=== PATIENT | female | born 1990 | race Caucasian/White ===

== ENCOUNTER → 2019-07-28 | Outpatient (CLI) | payer MEDICAID ==
--- NOTE | 2019-07-28 15:23 | Diagnostic Imaging Report ---
INDICATION: survey. TECHNIQUE: Multiple real-time grayscale images were obtained over the gravid uterus. COMPARISON: None. FINDINGS: Transverse positioning of the ross viable intrauterine gestation has the head to the maternal left. Owing to positioning, there is suboptimal visualization of the four-chambered heart, the cord, and the facial structures. No visualized anatomic abnormality. The placenta is posterior with no abruption or previa. The amniotic fluid index of 9.4 is normal. heart rate 158 bpm. Biometrical measurements are as follows: Biparietal 4.39 cm, age 19 weeks 2 days. Head circumference 17.45 cm, age 20 weeks 0 days. Abdominal circumference 15.01 cm, age 20 weeks 2 days. Femur length 3.37 cm, age 20 weeks 4 days. Sonographic estimate age: 20 weeks 1 days. Sonographic estimated date of delivery: 12/14/2019. Estimated Weight: 346 gm (+/- 51 gm). LMP percentile: 72%. heart rate: 158 beats per minute. number: 1 of 1. IMPRESSION: Ross viable IUP in transverse position measures 20 week 1 day. No pathological finding at the anatomical survey, however portions of the survey are limited on a positional basis as discussed. Dictated by: Dictated on workstation # [id number]
== END ==
LOC: RAD 13:49
PROVIDERS: ATTEND Obstetrics & Gynecology
DX: Z36.89 Encounter for other specified antenatal screening (principal); Z3A.20 20 weeks gestation of pregnancy
CPT/HCPCS: 76805

== ENCOUNTER → 2019-09-21 | Outpatient (CLI) | payer MEDICAID ==
--- NOTE | 2019-09-21 15:53 | Diagnostic Imaging Report ---
INDICATION: Followup anatomy. TECHNIQUE: Multiple Real-time grayscale images were obtained over the gravid uterus. COMPARISON: 07/28/2019. FINDINGS: There is a single live fetus in transverse presentation with the head to the maternal left. The heart rate was recorded at 147 BPM. The placenta is posterior. The amniotic fluid volume is normal. The cervical length is approximately 4.4 cm. A three-vessel cord is visualized today. A four-chamber heart view as well as a profile with nose and lips are again poorly visualized due to patient body habitus and position. IMPRESSION: Single live intrauterine . A three-vessel cord is noted on today's study. The profile with nose and lips as well as a four chamber heart view continue to be poorly visualized due to patient body habitus and position. Dictated by: Dictated on workstation # [id number]
== END ==
LOC: RAD 13:21
PROVIDERS: ATTEND Obstetrics & Gynecology
DX: Z36.2 Encounter for other antenatal screening follow-up (principal)
CPT/HCPCS: 76816

== ENCOUNTER 2019-11-02 10:11 | Outpatient (CLI) | payer MEDICAID ==
[~2019-11-02] VITALS: Ht 162.6 cm; Wt 157.2 kg
[2019-11-02 10:15] VITALS: BP 154/92
[2019-11-02] MEDS ORDERED: NS IV 500 ML 500 ML IV SCH (10:37)
[2019-11-02] MEDS ORDERED: EPINEPHrine INJECTION 1 MG/ML AMP IM PRN (10:45)
[2019-11-02] MEDS ORDERED: RT-ALBUTEROL SULF 2.5 MG/3 ML PRE-MIX VIAL IH PRN (10:45)
[2019-11-02] MEDS ORDERED: diphenhydrAMINE 50 MG/ML INJ (BENADRYL) IV PRN (10:45)
[2019-11-02] MEDS ORDERED: HYDROCORTISONE 100 MG/2 ML (Solu-CORTEF) VIAL IV PRN (10:45)
[2019-11-02] MEDS ORDERED: IRON DEXTRAN INJECTION 1,000 MG in NS (IVPB) 250 ML IV ONE (10:45)
[2019-11-02] MEDS ORDERED: IRON DEXTRAN INJECTION 25 MG in NS (IVPB) 5.75 ML IV ONE (10:45)
== END 2019-11-02 13:05 | disposition home or self-care (01) ==
LOC: SDC 10:11
PROVIDERS: ATTEND Obstetrics & Gynecology
DX: D64.9 Anemia, unspecified (principal)
CPT/HCPCS: 96365; 96366

== ENCOUNTER → 2019-11-23 | Outpatient (CLI) | payer MEDICAID ==
[~2019-11-23] MED LIST: GLYB5TAB6 PO
--- NOTE | 2019-11-23 14:25 | Diagnostic Imaging Report ---
INDICATION: Evaluate growth. TECHNIQUE: Multiple real-time grayscale images were obtained over the gravid uterus. COMPARISON: 09/21/2019. FINDINGS: There is a single live fetus in a cephalic presentation. heart rate was recorded at 152 bpm. Placenta is fundal. Amniotic fluid volume is normal. Biophysical profile was performed and is normal at 8 out of 8. Biometrical measurements are as follows: Biparietal 8.90 cm, age 36 weeks 1 days. Head circumference 32.46 cm, age 36 weeks 6 days. Abdominal circumference 32.26 cm, age 36 weeks 2 days. Femur length 7.31 cm, age 37 weeks 3 days. Sonographic estimate age: 36 weeks 5 days. Sonographic estimated date of delivery: 12/16/2019. Estimated Weight: 2965 gm (+/- 433 gm). LMP percentile: 50%. heart rate: 152 beats per minute. number: 1 of 1. IMPRESSION: Single live IUP 36-37 weeks gestational age showing normal interval growth when compared with prior exam. Biophysical profile score is normal at 8 out of 8. Dictated by: Dictated on workstation # [id number]
== END ==
LOC: RAD 12:32
PROVIDERS: ATTEND Nurse Practitioner Women's Health
DX: O24.419 Gestational diabetes mellitus in pregnancy, unspecified control (principal); E66.9 Obesity, unspecified; Z3A.36 36 weeks gestation of pregnancy
CPT/HCPCS: 76805; 76819

== ENCOUNTER → 2019-11-24 | Outpatient (CLI) | payer MEDICAID ==
[~2019-11-24] MED LIST changes: +DCS100C PO; +HYDR-83 PO; +IBUP-844 PO
== END ==
LOC: LABNPT 15:15
PROVIDERS: ATTEND Obstetrics & Gynecology
DX: O13.9 Gestational [pregnancy-induced] hypertension without significant proteinuria, unspecified trimester (principal)
CPT/HCPCS: 82570; 84156

== ENCOUNTER 2019-11-28 05:37 | Outpatient (RCR) | payer MEDICAID ==
[~2019-11-28] VITALS: Ht 165.1 cm; Wt 157.3 kg
[~2019-11-28 05:37] MED LIST changes: -DCS100C PO; -HYDR-3812 PO; -IBUP-844 PO; -KETOROLAC 30 MG/ML VIAL ONE; -ONDANSETRON 4 MG/2 ML (SDV) Z0FRAN ONE; -OXYTOCIN PRE-MIX DRIP 1,000 ML IV ONE; -fentaNYL INJECTION 100 MCG/2 ML AMP ONE
[2019-11-28] MEDS ORDERED: HYDR-3812 PO (14:01)
[2019-11-28] MEDS ORDERED: DCS100C PO (14:01)
[2019-11-28] MEDS ORDERED: IBUP-844 PO (14:01)
== END 2019-11-28 10:33 | disposition home or self-care (01) ==
LOC: PREOP 05:37
PROVIDERS: ATTEND Obstetrics & Gynecology
DX: Z01.812 Encounter for preprocedural laboratory examination (principal); O13.9 Gestational [pregnancy-induced] hypertension without significant proteinuria, unspecified trimester; O24.419 Gestational diabetes mellitus in pregnancy, unspecified control; Z20.828 Contact with and (suspected) exposure to other viral communicable diseases
CPT/HCPCS: 87635

== ENCOUNTER 2019-11-28 11:45 | Inpatient (IN) | payer MEDICAID ==
[~2019-11-28] VITALS: Ht 162.6 cm; Wt 157.1 kg
[2019-11-28] VITALS (11 sets, daily range): BP systolic 102–180; BP diastolic 47–88
--- NOTE | 2019-11-28 12:36 | NUR ---
PB GARCIA presented to unit via W/C, accompanied by S/O, with c/o REPEAT SECTION. PB GARCIA weighed, gowned, voided, and to bed. EFHM and TOCO applied, VS taken. PB GARCIA oriented to bed controls, call light, TV, heat, and A/C controls.
[2019-11-28] MEDS ORDERED: CITRIC ACID/SOB CIT (BICITRA) 30 ML UDC ONE (13:08)
[2019-11-28] MEDS ORDERED: ceFAZolin 2 GM IV Premixed 50 ML ONE (13:08)
[2019-11-28] MEDS ORDERED: METOCLOPRAMIDE INJ 10 MG/2 ML (REGLAN) ONE (13:08)
[2019-11-28] MEDS ORDERED: LACTATED RINGERS 1,000 ML IV ONE (13:08)
[2019-11-28] MEDS ORDERED: FAMOTIDINE 20MG/2ML IV (PEPCID) ONE (13:09)
--- NOTE | 2019-11-28 13:12 | History & Physical-OB ---
OB - Chief Complaint & HPI Date/Time Date of Admission: Date of Admission: Nov 28, 2019 at 12:46 Date seen by a Provider: Nov 28, 2019 Time Seen by a Provider: 12:50 Chief Complaint/History OB-Reason for Admission/Chief: Section Hx : 8 Hx Para: 6 Expected Date of Delivery: Dec 16, 2019 Gestational Age in Weeks: 37 Gestational Age in Days: 3 Indication for : desires repeat Admission Nurse Assessment Rev: Yes History of Labs O + antibody neg RI RPR NR HIV NR HBsAG NR GC neg GBS neg Allergies and Home Medications Allergies Coded Allergies: No Known Drug Allergies (Unverified , 11/02/19) Home Medications Glyburide 5 Mg Tablet, 5 MG PO BID, (Reported) Patient Home Medication List Home Medication List Reviewed: Yes OB - History Hx of Present Care: Yes Ultrasounds: Normal mid trimester US Obstetrical Complications: Gestational Diabetes, Gestational Hypertension Delivery History Hx Section: Yes Patient Past Medical History Obesity OB - Admission Exam Physical Exam HEENT: NCAT Heart: Rhythm Normal Lungs: Clear Abdomen: Gravid Extremities: Normal Heart Rate: 150's Accelerations: Accelerations Present Decelerations: No Decelerations Short Term Variability: Present Brake Repair Mechanic Variability: Average (6-25) Contractions on Admission: None OB - Assessment/Plan/Diagnosis Assessment Assessment: section Admission Dx 29 yo @ 37.3 repeat section GBS neg gestational diabetes induced hypertension Biophysical profile 4/8 on 11/28/19 Admission Status: Inpatient Order (span 2 midnights) Reason for Inpatient Admission: Repeat section Plan Plan: Section CATHERINE SAUL MED STUDENT Nov 28, 2019 13:12
[2019-11-28] MEDS ORDERED: LACTATED RINGERS 1,000 ML IV PRN ×2 (13:36)
[2019-11-28 13:39] LABS: BASOPHILS % (AUTO) 0 % (0-10); EOSINOPHILS % (AUTO) 1 % (0-10); HEMATOCRIT 32 % (35-52); HEMOGLOBIN 10.1 G/DL (11.5-16.0); LYMPHOCYTES # (AUTO) 1.8 X 10^3 (1.0-4.0); LYMPHOCYTES % (AUTO) 21 % (12-44); MEAN CORPUSCULAR HEMOGLOBIN 26 PG (25-34); MEAN CORPUSCULAR HGB CONC 32 G/DL (32-36); MEAN CORPUSCULAR VOLUME 82 FL (80-99); MONOCYTES # (AUTO) 0.5 X 10^3 (0.0-1.0); MONOCYTES % (AUTO) 6 % (0-12); NEUTROPHILS # (AUTO) 6.4 X 10^3 (1.8-7.8); NEUTROPHILS % (AUTO) 73 % (42-75); PLATELET COUNT 363 10^3/uL (130-400); WHITE BLOOD COUNT 8.9 10^3/uL (4.3-11.0)
[2019-11-28] MEDS ORDERED: CATHETER FLUSH 10 ML SYR IV PRN (13:45)
[2019-11-28] MEDS ORDERED: ceFAZolin 2 GM IV Premixed 50 ML IV ONE (13:45)
[2019-11-28] MEDS ORDERED: CITRIC ACID/SOB CIT (BICITRA) 30 ML UDC PO ONE (13:45)
[2019-11-28] MEDS ORDERED: METOCLOPRAMIDE INJ 10 MG/2 ML (REGLAN) IV ONE (13:45)
[2019-11-28] MEDS ORDERED: ONDANSETRON 4 MG/2 ML (SDV) Z0FRAN IVP PRN (14:00)
[2019-11-28] MEDS ORDERED: MEASLES,MUMPS,RUBELLA 1 EA INJ SC SCH (14:00)
[2019-11-28] MEDS ORDERED: TETANUS,DIPTH,PERTUSS P/F (BOOSTRIX) 0.5 ML VIAL IM SCH (14:00)
[2019-11-28] MEDS ORDERED: HYDR-3812 PO (14:01)
[2019-11-28] MEDS ORDERED: DCS100C PO (14:01)
[2019-11-28] MEDS ORDERED: IBUP-844 PO (14:01)
--- NOTE | 2019-11-28 14:02 | Discharge Inst-Women's Service ---
Discharge Inst-Women's Serv Depart Medication/Instructions New, Converted or Re-Newed RX: RX on Chart Final Diagnosis POD 2 RLTCS Problems Reviewed?: Yes Consults/Follow Up Additional Follow Up: Yes Orders/Referrals Dr. Monae in 7-10 days and in 6 weeks Activity Activity: Activity as Tolerated Driving Instructions: No Driving for 1 Week NO SMOKING: NO SMOKING Nothing Inside Vagina: No Douching, No [place], No Tampons Diet Discharge Diet: No Restrictions Symptoms to Report to : Bleeding Excessive, Pain Increased, Fever Over 101 Degrees F, Vaginal Bleeding Increase, Questions/Concerns For Any Problems or Questions: Contact Your Physician Skin/Wound Care Infection Signs and Symptoms: Increased Redness, Foul Odor of Wound, Increased Drainage, Skin Itchy or Has a Rash, Increased Swelling, Temperature Above 101 F Operative Area Clean and Dry: Keep Incision Clean/Dry Stitches/Chandrakant/Dermabond: Care of [place] Bathing Instructions: HEENA Salvador DO Nov 28, 2019 14:02
--- OUTSIDE RECORDS SUMMARY | 2019-11-28 14:30 | XMS REPORT | Continuity of Care Document ---
Author Organization Unknown Address Unknown Phone Unavailable Allergies Active Description Code Type Severity Reaction Onset Reported/Identified Relationship to Patient Clinical Status Yes No Known Drug Allergies [id number] Drug Allergy Unknown N/A 11/02/2019 Medications There is no data. Problems Date Dx Coded Attending Type Code Diagnosis Diagnosed By 08/04/2019 Ot Z36.89 ENC OUNTER FOR OTHER SPECIFIED 08/04/2019 Ot Z3A.20 20 WEEKS GESTATION OF 08/04/2019 Ot Z36.89 ENC OUNTER FOR OTHER SPECIFIED 08/04/2019 Ot Z3A.20 20 WEEKS GESTATION OF 09/22/2019 HEENA TRAYLOR DO S Ot Z36.2 ENCOUNTER FOR OTHER SCREENING 11/07/2019 HEENA TRAYLOR DO S Ot D64.9 ANEMIA, UNSPECIFIED 11/24/2019 ELSIE SEVILLA CUTTING AND SPLICING SUPERVISOR Ot E66.9 OBESITY, UNSPECIFIED 11/24/2019 ELSIE SEVILLA CUTTING AND SPLICING SUPERVISOR Ot O24.419 GESTATIONAL DIABETES MELLITUS IN PREGNAN 11/24/2019 ELSIE SEVILLA CUTTING AND SPLICING SUPERVISOR Ot Z3A.36 36 WEEKS GESTATION OF 11/28/2019 HEENA TRAYLOR DO S Ot O13.9 GESTATIONAL HTN W/O SIGNIFICANT PROTEINU Procedures There is no data. Results Test Result Range Urine protein/creatinine mass ratio - 14:00 Urine protein measurement (mass/volume) 19 mg/dL 6-12 Urine creatinine measurement (mass/volume) 157 mg/ dL 30-125 Urine protein/creatinine mass ratio 0.12 NRG Complete blood count (CBC) with automate d white blood cell (WBC) differential - 11/28/19 13:13 Blood leukocytes automated count (number/volume) 8.9 10*3/uL 4.3-11.0 Blood erythrocytes automated count (number/volume) 3.90 10*6/uL 4.35-5.85 Venous blood hemoglobin measurement (mass/volume) 10.1 g/dL 11.5-16.0 Blood hematocrit (volume fraction) 32 % 35-52 Automated erythrocyte mean corpuscular volume 82 [ foz_us] 80-99 Automated erythrocyte mean corpuscular h emoglobin (mass per erythrocyte) 26 pg 25-34 Automated erythrocyte mean corpuscular h emoglobin concentration measurement (mass/volume) 32 g/dL 32-36 Automated erythrocyte distribution width ratio TNP 10.0- 14.5 Automated blood platelet count (count/volume) 363 10*3/uL 130-400 Automated blood platelet mean volume measurement 9.0 [foz_us] 7.4-10.4 Automated blood neutrophils/100 leukocytes 73 % 42-75 Automated blood lymphocytes/100 leukocytes 21 % 12-44 Blood monocytes/100 leukocytes 6 % 0-12 Automated blood eosinophils/100 leukocytes 1 % 0-10 Automated blood basophils/100 leukocytes 0 % 0-10 Blood neutrophils automated count (number/volume) 6.4 10*3 1.8-7.8 Blood lymphocytes automated count (number/volume) 1.8 10*3 1.0-4.0 Blood monocytes automated count (number/volume) 0. 5 10*3 0.0-1.0 Automated eosinophil count 0.0 10*3/uL 0 .0-0.3 Automated blood basophil count (count/volume) 0.0 10*3/uL 0.0-0.1 Encounters ACCT No. Visit Date/Time Discharge Status Pt. Type Provider Facility Loc./Unit Complaint [id number] 09/05/2019 10:45:00 09/05/2019 23:59: 59 CLS Out[facility] [id number] 11/28/2019 05:37:00 10:33:00 DIS Outpatient HEENA TRAYLOR DO [facility] PREOP PREVIOUS [id number] 11/24/2019 15:15:00 23:59:59 CLS Outpatient HEENA TRAYLOR DO [facility] LABNPT [id number] 11/23/2019 12:32:00 23:59:59 CLS Outpatient ELSIE SEVILLA APRN [facility] RAD GDM [id number] 11/02/2019 10:11:00 13:05:00 DIS Outpatient HEENA TRAYLOR DO [facility] SDC SEVERE ANEMIA [id number] 09/21/2019 13:21:00 020 23:59:59 CLS Outpatient HEENA TRAYLOR DO [facility] RAD F/U FOR INCOMPLETE VIE WS [id number] 12/02/2019 07:30:00 P EN Preadmit HEENA TRAYLOR DO PREVIOUS [id number] 11/28/2019 08:11:[address] Outpatient ELSIE SEVILLA APRN [facility] RAD GESTATIONAL DIABETES,PREGNAN T [id number] 07/28/2019 13:49:00 Document Registration
[2019-11-28] MEDS: KETOROLAC 30 MG/ML VIAL IV SCH ×2 (14:49→20:00)
[2019-11-28] MEDS: HYDROcodone/APAP 5 MG/325 MG (LORTAB) TAB PO PRN ×2 (16:37→23:12)
--- NOTE | 2019-11-28 18:20 | NUR ---
up to bathroom. pericare performed with staff assistance x1. new pad and underwear on. unable to void. bed linens changed. deneis further need at this time.
[2019-11-28] MEDS: OXYTOCIN PRE-MIX DRIP 500 ML IV SCH (18:25)
[2019-11-28] MEDS: IBUPROFEN 600 MG (MOTRIN) TAB PO SCH ×2 (19:52→22:34)
[2019-11-28] MEDS: CATHETER FLUSH 10 ML SYR IV SCH ×2 (19:52→22:33)
[2019-11-28] MEDS: DOCUSATE SODIUM 100 MG (COLACE) CAP PO SCH (20:00)
--- NOTE | 2019-11-28 20:51 | OPERATIVE REPORT ---
DATE OF SERVICE: PREOPERATIVE DIAGNOSES: 1. A 29-year-old G8, P6 at 37 weeks and 3 days' gestation. 2. Gestational diabetes class A2 with poor control and compliance. 3. Gestational hypertension. 4. Morbid obesity, body mass index of 57. 5. 4 out of 8 biophysical profile. 6. Amniotic fluid index of 6 cm. POSTOPERATIVE DIAGNOSES: 1. A 29-year-old G8, P6 at 37 weeks and 3 days' gestation. 2. Gestational diabetes class A2 with poor control and compliance. 3. Gestational hypertension. 4. Morbid obesity, body mass index of 57. 5. 4 out of 8 biophysical profile. 6. Amniotic fluid index of 6 cm. PROCEDURE: Repeat low transverse section. SURGEON: Sherif Traylor DO CORRUGATED FASTENER DRIVER: AZIZA Harper. ANESTHESIA: Spinal. ESTIMATED BLOOD LOSS: 300 mL. URINE OUTPUT: 30 mL clear at the end of the procedure. FLUIDS: 1000 mL of lactated Ringer's solution. FINDINGS: A live female infant weighing 7 pounds even, Apgars of 8 and 9. Grossly normal appearing uterus, bilateral fallopian tubes and ovaries. SPECIMEN SENT: Placenta. INDICATIONS FOR PROCEDURE: This 29-year-old female is a patient who was under my care. Her blood sugars and compliance were both difficult to manage and control due to her not bringing in her blood sugars and not following a strict diet regimen throughout her . In these last two weeks, we did move forward with surveillance as we could demonstrate her blood sugars were starting to get more difficult to control. Biophysical profile today was found to be 4/8 with a drop in her fluid down to 6 cm. Due to concerns of distress and her being over 37 weeks, I have recommended proceeding with delivery. Risk of delivery at 37 weeks versus continued monitoring was discussed with the patient in detail. After all of her questions were answered, she was agreeable to proceed. Risks of the surgery itself was discussed with the patient in detail including risk of bleeding, infection, damage to surrounding structures including, but not limited to bowel, bladder, ureter, kidneys, possible need for reoperation, postoperative complications, recovery timeframe, recovery restrictions, risk from anesthesia and even . Everything was discussed with the patient in detail, consent was obtained in the preoperative area, the patient was taken to the operating room. OPERATIVE REPORT IN DETAIL: Once in the operating room, spinal analgesia was found to be adequate. She was placed in the supine position with leftward tilt, prepped and draped in normal sterile fashion. The patient's panniculus has to be suspended with retraction using towel clamps through her pannus cephalad over the top of the bed. Once this was done, she was draped. After testing anesthesia, I then proceeded with making a Pfannenstiel skin incision with a knife and carried down to the fascia using Bovie cautery. Fascial incision extended laterally using Bovie cautery. Superior aspect of fascial incision was then grasped with Tommy clamps, tented up and dissected off the underlying rectus muscles. The inferior aspect of the fascial incision was then grasped with Tommy clamps, tented up and dissected off the underlying rectus muscles. The rectus muscles were already dissected down the midline due to large diastasis. I am able to separate them even further and achieve peritoneal access by bluntly dissecting with my fingers. I extended the peritoneal incision superiorly and inferiorly using Metzenbaum scissors, which gained me peritoneal access. Once I had peritoneal access, I placed an Estiven ring retractor in peritoneal incision, which offers excellent lateral sidewall retraction. I identified the lower uterine segment, which was found to be thinned out. I made a low transverse incision to the vesicouterine peritoneum and I bluntly dissected off the lower uterine segment. I proceeded with my myotomy until membranes were visualized, at which point extended the uterine incision laterally and superiorly using bandage scissors. Amniotomy was performed using Allis clamp. Clear fluid was noted. With gentle fundal pressure, the infant's head was elevated up the incision where the nuchal cord was reduced x1. Nares and oropharynx were bulb suctioned. Anterior and posterior shoulders delivered. Infant was then brought to the operative field with cord doubly clamped and cut and infant was handed off to waiting nurses in attendance. Cord blood was collected. Three-vessel cord with intact placenta was delivered spontaneously thereafter. IV Pitocin was initiated to facilitate uterine contraction. Uterine fundus confirmed by manual massage. Uterus was then exteriorized and cleared of all endometrial clots and debris. I then proceeded with closing the uterine incision using 0 Vicryl suture in running locked fashion. Second layer of imbricating 0 Monocryl was placed. Excellent hemostasis was noted after doing this. I then placed the uterus back within the pelvis and copiously irrigated the pelvis using normal saline. Once again, there was no active bleeding noted from any of my dissection planes. I placed Interceed antiadhesive over my low transverse incision and removed the Estiven ring retractor and then proceeded with closing the peritoneum using 3-0 Vicryl suture in running fashion. The rectus muscles were reapproximated using 3-0 Vicryl suture in interrupted fashion. The fascia was reapproximated using 0 Vicryl suture in running fashion. The subcutaneous tissue was reapproximated using 3-0 plain interrupted subcutaneous stitch and the skin reapproximated using jacob. A sterile dressing with adhesive white tape. The patient tolerated the procedure well and was taken to recovery area in stable condition. Lap and sponge counts were correct at the end of procedure. Instrument counts correct as well. Two grams of Ancef given preoperatively for infection prophylaxis. Job ID: [id number] DocumentID: [id number] Dictated Date: 11/28/2019 15:24:19 Certified Pest Control Technician Date: 11/28/2019 20:50:35 Dictated By: SHERIF TRAYLOR DO
[2019-11-29] MEDS: OXYTOCIN PRE-MIX DRIP 500 ML IV SCH (00:27)
[2019-11-29 02:04] VITALS: BP 146/86
[2019-11-29] MEDS: KETOROLAC 30 MG/ML VIAL IV SCH (02:04)
[2019-11-29] MEDS: HYDROcodone/APAP 5 MG/325 MG (LORTAB) TAB PO PRN ×3 (05:21→18:42)
[2019-11-29 05:27] LABS: BASOPHILS % (AUTO) 0 % (0-10); EOSINOPHILS # (AUTO) 0.1 10^3/uL (0.0-0.3); EOSINOPHILS % (AUTO) 1 % (0-10); HEMATOCRIT 29 % (35-52); HEMOGLOBIN 8.8 G/DL (11.5-16.0); LYMPHOCYTES # (AUTO) 1.8 X 10^3 (1.0-4.0); LYMPHOCYTES % (AUTO) 24 % (12-44); MEAN CORPUSCULAR HEMOGLOBIN 26 PG (25-34); MEAN CORPUSCULAR HGB CONC 31 G/DL (32-36); MEAN CORPUSCULAR VOLUME 84 FL (80-99); MEAN PLATELET VOLUME 8.9 FL (7.4-10.4); MONOCYTES # (AUTO) 0.5 X 10^3 (0.0-1.0); MONOCYTES % (AUTO) 7 % (0-12); NEUTROPHILS # (AUTO) 4.9 X 10^3 (1.8-7.8); NEUTROPHILS % (AUTO) 68 % (42-75); PLATELET COUNT 286 10^3/uL (130-400); WHITE BLOOD COUNT 7.3 10^3/uL (4.3-11.0)
[2019-11-29] MEDS ORDERED: LABETALOL 200 MG (NORMODYNE) TAB PO ONE (06:30)
--- NOTE | 2019-11-29 07:30 | NUR ---
DR. TRAYLOR HERE TO SEE PT.
--- NOTE | 2019-11-29 07:37 | Postpartum Progress Note ---
CATHERINE SAUL,MED STUDENT 11/29/19 0737: Note Note Day # 1 Subjective: Patient is without complaints. Ambulating, voiding. Tolerating a regular diet without nausea or vomiting. Normal lochia. Pain is well controlled with oral pain medications. Objective: Physical Exam: General - Alert and oriented, no apparent distress Abdomen - Soft, appropriately tender to palpation, non-distended, fundus firm at umbilicus Extremities - no edema, negative Ad's bilaterally Incision - clean/dry/intact Assessment: POD 1 RLTCS Acute Blood Loss Anemia Induced Hypertension Gestational Diabetes Plan: Routine care. Encourage breast feeding. Encourage ambulation. Ferrous sulfate supplementation. Continue to monitor glucose and blood pressure. Plan for discharge tomorrow. Vitals - Labs Vital Signs - I&O Vital Signs Date Time Temp Pulse Resp B/P (MAP) Pulse Ox O2 Delivery O2 Flow Rate FiO2 11/29/19 02:04 36.8 78 20 146/86 (106) 98 Room Air 11/28/19 23:12 36.4 71 20 146/88 (107) 99 Room Air 11/28/19 20:00 36.0 76 20 146/87 (106) 97 Room Air 11/28/19 19:26 Room Air 11/28/19 17:40 36.2 72 20 142/80 (100) Room Air 11/28/19 16:00 36.2 65 20 139/81 (100) 99 Room Air 11/28/19 15:55 Room Air 11/28/19 15:45 36.4 20 128/82 (97) 98 Room Air 11/28/19 15:40 Room Air 11/28/19 15:35 18 118/71 (87) 98 Room Air 11/28/19 15:25 16 121/69 (86) 99 Room Air 11/28/19 15:25 Room Air 11/28/19 15:15 14 117/72 (87) 99 Room Air 11/28/19 15:10 Room Air 11/28/19 15:05 23 109/70 (83) 100 Room Air 11/28/19 14:55 36.6 20 102/47 (65) 100 Room Air 11/28/19 14:55 Room Air 11/28/19 12:55 36.0 94 20 98 Room Air I & O 11/29/19 07:00 Intake Total 1200 ml Output Total 60 ml Balance 1140 ml Labs Laboratory Tests 11/28/19 13:13: White Blood Count 8.9, Red Blood Count 3.90L, Hemoglobin 10.1L, Hematocrit 32L, Mean Corpuscular Volume 82, Mean Corpuscular Hemoglobin 26, Mean Corpuscular Hemoglobin Concent 32, Red Cell Distribution Width , Platelet Count 363, Mean Platelet Volume 9.0, Neutrophils (%) (Auto) 73, Lymphocytes (%) (Auto) 21, Monocytes (%) (Auto) 6, Eosinophils (%) (Auto) 1, Basophils (%) (Auto) 0, Neutrophils # (Auto) 6.4, Lymphocytes # (Auto) 1.8, Monocytes # (Auto) 0.5, Eos inophils # (Auto) 0.0, Basophils # (Auto) 0.0 11/28/19 19:59: Glucometer 124H 11/29/19 04:45: White Blood Count 7.3, Red Blood Count 3.38L, Hemoglobin 8.8L, Hematocrit 29L, Mean Corpuscular Volume 84, Mean Corpuscular Hemoglobin 26, Mean Corpuscular Hemoglobin Concent 31L, Red Cell Distribution Width , Platelet Count 286, Mean Platelet Volume 8.9, Neutrophils (%) (Auto) 68, Lymphocytes (%) (Auto) 24, Kingfisher cytes (%) (Auto) 7, Eosinophils (%) (Auto) 1, Basophils (%) (Auto) 0, Neutrophils # (Auto) 4.9, Lymphocytes # (Auto) 1.8, Monocytes # (Auto) 0.5, Eosinophils # (Auto) 0.1, Basophils # (Auto) 0.0, Glucose Level 81 HEENA TRAYLOR DO 11/29/19 0759: Note Note Verification and Attestation of Medical Student E/M Service A medical student performed and documented this service in my presence. I reviewed and verified all information documented by the medical student and made modifications to such information, when appropriate. I personally performed the physical exam and medical decision making. Heena Traylor, Nov 29, 2019,07:59 CATHERINE SAUL,MED STUDENT Nov 29, 2019 07:37 HEENA TRAYLOR DO Nov 29, 2019 07:59
[2019-11-29 08:00] VITALS: BP 152/72
--- NOTE | 2019-11-29 08:00 | NUR ---
A.M. ASSESSMENT COMPLETED. VSS. CARING FOR IN ROOM.
[2019-11-29] MEDS: DOCUSATE SODIUM 100 MG (COLACE) CAP PO SCH ×2 (08:38→20:31)
[2019-11-29] MEDS: IBUPROFEN 600 MG (MOTRIN) TAB PO SCH ×3 (08:38→20:31)
--- NOTE | 2019-11-29 09:19 | Anesthesia-Regional Post-Op ---
Regional Patient Condition Mental Status: Alert, Oriented x3 Circulation: Same as Pre-Op Headache: Absent Sensation: Full Recovery Motor Block: Absent Post Op Complications Complications None Follow Up Care/Instructions Patient Instructions None needed. Anesthesia/Patient Condition Patient is doing well, no complaints, stable vital signs, no apparent adverse anesthesia problems. No complications reported per nursing. MARCEL ROLLE CRNA Nov 29, 2019 09:19
--- NOTE | 2019-11-29 10:48 | NUR ---
2 HPP BS 100 MGS/DL PER FS. RESTING IN BED HOLDING WHEN ENTERED ROOM. S.O. ASLEEP AT BEDSIDE.
[2019-11-29 12:30] VITALS: BP 139/74
--- NOTE | 2019-11-29 12:40 | NUR ---
LORTAB 5/325 2 TABS P.O. FOR C/O ABD CRAMPING AND PAIN RATED 6/10. ENCOURAGED AMBULATION AGAIN IN HALLWAY.
--- NOTE | 2019-11-29 13:00 | NUR ---
STORK MEAL SERVED.
--- NOTE | 2019-11-29 14:51 | NUR ---
TDAP GIVEN IM IN LEFT DELTOID. SITE CLEAR.
--- NOTE | 2019-11-29 17:15 | NUR ---
AMBULATING IN THE SMITH. MOVING FAIRLY WELL. SPOUSE PUSHING CRIB.
[2019-11-29 17:30] VITALS: BP 148/76
--- NOTE | 2019-11-29 18:42 | NUR ---
HOLDING IN BED. LORTAB 2 TABS P.O. FOR C/O ABD PAIN AND CRAMPING.
[2019-11-29 20:31] VITALS: BP 144/80
[2019-11-30] MEDS: HYDROcodone/APAP 5 MG/325 MG (LORTAB) TAB PO PRN ×2 (00:52→09:32)
[2019-11-30 03:25] VITALS: BP 138/89
[2019-11-30] MEDS: IBUPROFEN 600 MG (MOTRIN) TAB PO SCH ×2 (03:25→09:32)
--- NOTE | 2019-11-30 07:45 | Postpartum Progress Note ---
Note Note Day # 2 Subjective: Patient is without complaints. Ambulating, voiding. Tolerating a regular diet without nausea or vomiting. Normal lochia. Pain is well controlled with oral pain medications. Glucose levels have been within normal range with regular diet. Objective: Physical Exam: General - Alert and oriented, no apparent distress Abdomen - Soft, appropriately tender to palpation, non-distended, fundus firm at umbilicus Extremities - no edema, negative Ad's bilaterally Incision - clean/dry/intact Assessment: POD 2 RLTCS Acute Blood Loss Anemia Gestational Diabetes Induced Hypertension Plan: Routine care. Encourage breast feeding. Encourage ambulation. Ferrous sulfate supplementation. Plan for discharge today. Vitals - Labs Vital Signs - I&O Vital Signs Date Time Temp Pulse Resp B/P (MAP) Pulse Ox O2 Delivery O2 Flow Rate FiO2 11/30/19 03:25 36.3 75 18 138/89 (105) 100 Room Air 11/29/19 20:31 36.4 82 18 144/80 (101) 100 Room Air 11/29/19 17:30 36.5 82 18 148/76 (100) 98 Room Air 11/29/19 12:30 36.5 77 20 139/74 (95) 98 Room Air 11/29/19 08:00 36.5 77 20 152/72 (98) 97 Room Air I & O 11/30/19 07:00 Intake Total 2260 ml Output Total 1850 ml Balance 410 ml Labs Laboratory Tests 11/29/19 10:48: Glucometer 100 11/29/19 16:25: Glucometer 94 11/29/19 20:34: Glucometer 108 11/30/19 06:15: Glucometer 91 CATHERINE SAUL,MED STUDENT Nov 30, 2019 07:44
--- NOTE | 2019-11-30 08:15 | NUR ---
here. dismissal orders received.
[2019-11-30 09:30] VITALS: BP 136/76
--- NOTE | 2019-11-30 09:30 | NUR ---
initial shift assessment completed, see interventions for further.
[2019-11-30] MEDS: DOCUSATE SODIUM 100 MG (COLACE) CAP PO SCH (09:32)
--- NOTE | 2019-11-30 12:00 | NUR ---
dismissal instructions given, verbalized understanding. reviewed follow up appointments and medications. signature page signed, placed on chart.
--- NOTE | 2019-11-30 12:00 | NUR ---
pt discharge to private vehicle via w/c with this RN, and @ side. infant secured in rear facing car seat. pt stable with no sx's of distress noted. Addendum: 11/30/19 at 1547 by TIKA MEJIA RN error- wrong time. pt discharge @ 1915
== END 2019-11-30 13:45 | disposition home or self-care (01) | DRG 787 ==
LOC: LDRP 12:46
PROVIDERS: ADMIT Obstetrics & Gynecology; ATTEND Obstetrics & Gynecology
PROC: 10D00Z1 Extraction of Products of Conception, Low, Open Approach (ICD-10-PCS; principal; 2019-11-28 13:44)
DX: O34.211 Maternal care for low transverse scar from previous cesarean delivery (principal); D62 Acute posthemorrhagic anemia; O24.429 Gestational diabetes mellitus in childbirth, unspecified control; O13.4 Gestational [pregnancy-induced] hypertension without significant proteinuria, complicating childbirth; Z37.0 Single live birth; Z3A.37 37 weeks gestation of pregnancy; O99.214 Obesity complicating childbirth; E66.01 Morbid (severe) obesity due to excess calories; O99.03 Anemia complicating the puerperium
CPT/HCPCS: 36415; 82947; 82962; 85025; 86850; 86900; 86901; 90715; 94664

== ENCOUNTER → 2019-11-28 | Outpatient (CLI) | payer MEDICAID ==
[~2019-11-28] MED LIST changes: +HYDR-3812 PO; -HYDR-83 PO; +KETOROLAC 30 MG/ML VIAL ONE; +ONDANSETRON 4 MG/2 ML (SDV) Z0FRAN ONE; +OXYTOCIN PRE-MIX DRIP 1,000 ML IV ONE; +fentaNYL INJECTION 100 MCG/2 ML AMP ONE
--- NOTE | 2019-11-28 15:25 | Diagnostic Imaging Report ---
INDICATION: Gestational diabetes. TECHNIQUE: Multiple real-time grayscale images were obtained over the gravid uterus. COMPARISON: November 23, 2019. FINDINGS: Single live intrauterine gestation is identified in a cephalic presentation. The placenta is fundal in location without evidence of abruption. Amniotic fluid is at the lower limits of normal measuring 6.2 cm with the largest single pocket measures 4.3 cm. cardiac motions documented at 135 bpm. Estimated gestational age is 37 weeks and 4 days. biometrics are symmetric. There has been adequate interval growth since the prior examination. Biophysical profile score: breathing motion: 2/2. movements: 0/2. posture and tone: 0/2. Amniotic fluid: 2/2. Total score: 4/8. IMPRESSION: Single live intrauterine gestation is identified in a cephalic presentation with a biophysical profile score of 4/8. breathing motion was identified, though no other significant movements were identified on examination. Recommend close follow-up with additional biophysical profile score within the next week. Continued interval growth when compared to the prior examination. Amniotic fluid index is at the lower limits of normal, likely related to advanced gestational age. Biometrical measurements are as follows: Biparietal 8.98 cm, age 36 weeks 3 days. Head circumference 33.15 cm, age 37 weeks 6 days. Abdominal circumference 34.38 cm, age 38 weeks 2 days. Femur length 7.37 cm, age 37 weeks 5 days. Sonographic estimate age: 37 weeks 4 days. Sonographic estimated date of delivery: 12/15/19. Estimated Weight: 3328 gm (+/- 486 gm). LMP percentile: NA%. heart rate: 135 beats per minute. number: 1 of 1. Dictated by: Dictated on workstation # [id number]
== END ==
LOC: RAD 08:11
PROVIDERS: ATTEND Nurse Practitioner Women's Health
DX: O24.419 Gestational diabetes mellitus in pregnancy, unspecified control (principal); O13.3 Gestational [pregnancy-induced] hypertension without significant proteinuria, third trimester; O99.213 Obesity complicating pregnancy, third trimester; Z3A.37 37 weeks gestation of pregnancy
CPT/HCPCS: 76805; 76819

== ENCOUNTER → 2020-01-03 | Outpatient (CLI) | payer MEDICAID ==
[~2020-01-03] MED LIST changes: +DCS100C PO; +HYDR-3812 PO; +IBUP-844 PO
[2020-01-03 09:21] LABS: BASOPHILS % (AUTO) 0 % (0-10); EOSINOPHILS # (AUTO) 0.1 10^3/uL (0.0-0.3); EOSINOPHILS % (AUTO) 2 % (0-10); HEMATOCRIT 34 % (35-52); HEMOGLOBIN 10.6 G/DL (11.5-16.0); LYMPHOCYTES % (AUTO) 29 % (12-44); MEAN CORPUSCULAR HEMOGLOBIN 25 PG (25-34); MEAN CORPUSCULAR HGB CONC 31 G/DL (32-36); MEAN CORPUSCULAR VOLUME 80 FL (80-99); MEAN PLATELET VOLUME 9.1 FL (7.4-10.4); MONOCYTES # (AUTO) 0.4 X 10^3 (0.0-1.0); MONOCYTES % (AUTO) 6 % (0-12); NEUTROPHILS # (AUTO) 4.4 X 10^3 (1.8-7.8); NEUTROPHILS % (AUTO) 63 % (42-75); PLATELET COUNT 477 10^3/uL (130-400); RED CELL DISTRIBUTION WIDTH 16.9 % (10.0-14.5)
[2020-01-03 09:36] LABS: BUN/CREATININE RATIO 14; CALCIUM 8.9 MG/DL (8.5-10.1); CARBON DIOXIDE 23 MMOL/L (21-32); CHLORIDE 104 MMOL/L (98-107); CREATININE SERUM 0.73 MG/DL (0.60-1.30); GFR ESTIMATED > 60; GLUCOSE 100 MG/DL (70-105); POTASSIUM 3.3 MMOL/L (3.6-5.0); SODIUM 137 MMOL/L (135-145)
== END ==
LOC: CARD 08:44
PROVIDERS: ATTEND Obstetrics & Gynecology
DX: Z01.812 Encounter for preprocedural laboratory examination (principal)
CPT/HCPCS: 36415; 80048; 85025; 87081; 93005

== ENCOUNTER → 2020-01-03 | Outpatient (CLI) | payer MEDICAID | LOC: LABNPT 05:35 | PROVIDERS: ATTEND Obstetrics & Gynecology | DX: Z01.812 Encounter for preprocedural laboratory examination (principal); Z20.828 Contact with and (suspected) exposure to other viral communicable diseases | CPT/HCPCS: 87635 ==

== ENCOUNTER 2020-07-07 15:48 | Emergency (ER) | payer MEDICAID ==
[~2020-07-07] VITALS: Ht 162 cm; Wt 154.0 kg
[~2020-07-07 15:48] MED LIST changes: +ACHD5005 PO; +GLBR5T PO; -GLYB5TAB6 PO; -HYDR-3812 PO
--- NOTE | 2020-07-07 16:14 | ED Lower Extremity ---
General Chief Complaint: Lower Extremity Stated Complaint: LEG/KNEE/BACK PAIN Nursing Triage Note: PT AMB TO [facility]3 PT CO OF L KNEE PAIN AND SWELLING FOR 2 WEEKS, PT DENIES INJURY RATES PAIN 10/10. PT CO OF LOW BACK PAIN Nursing Sepsis Screen: No Definite Risk Source: patient Exam Limitations: no limitations History of Present Illness Date Seen by Provider: Jul 07, 2020 Time Seen by Provider: 15:58 Initial Comments This is a well-appearing 30-year-old female who presents to the ER with complaints of left knee swelling and pain x1 week. As well as low back pain since her child was born approximately 7 months ago. States the pain in her back has worsened since her knee pain occurred. Does note that she did have epidural and spinal during delivery. Denies any injury. States that knee continued to swell despite resting and elevating. Pain is located on bilateral sides of kneecap. Her main concern is a blood clot. Denies fevers, chills, cough, shortness of breath, nausea, vomiting. Allergies and Home Medications Allergies Coded Allergies: No Known Drug Allergies (Unverified , 11/02/19) Home Medications Cyclobenzaprine HCl 10 Mg Tablet, 10 MG PO Q8H PRN for SPASMS Prescribed by: SELMA GARZON on 07/07/20 1701 Docusate Sodium 100 Mg Capsule, 100 MG PO BID PRN for CONSTIPATION-1ST LINE Prescribed by: HEENA TRAYLOR on 11/28/19 1401 Glyburide 5 Mg Tablet, 5 MG PO BID, (Reported) Hydrocodone/Acetaminophen 1 Each Tablet, 1-2 TAB PO Q6HR PRN for PAIN-MODERATE (5-7) Prescribed by: HEENA TRAYLOR on 11/28/19 1401 Ibuprofen 600 Mg Tablet, 600 MG PO Q6HR Prescribed by: HEENA TRAYLOR on 11/28/19 1401 Patient Home Medication List Home Medication List Reviewed: Yes Review of Systems Constitutional: no symptoms reported EENTM: no symptoms reported Respiratory: no symptoms reported Cardiovascular: no symptoms reported Gastrointestinal: no symptoms reported Genitourinary: no symptoms reported Musculoskeletal: see HPI Skin: no symptoms reported Psychiatric/Neurological: No Symptoms Reported Past Yxywiho-Tqqrfy-Jjfppn Hx Patient Social History Alcohol Use: Denies Use Smoking Status: Never a Smoker Recent Infectious Disease Expo: No Recent Hopitalizations: No Immunizations Up To Date Tetanus Booster (TDap): Unknown PED Vaccines UTD: Yes Seasonal Allergies Seasonal Allergies: Yes Past Medical History Surgeries: Yes Section Respiratory: No Cardiac: No Neurological: No Genitourinary: No Gastrointestinal: Yes Gastroesophageal Reflux Musculoskeletal: No Endocrine: Yes (GDM) HEENT: No Cancer: No Psychosocial: Yes Anxiety Integumentary: No Blood Disorders: No Adverse Reaction/Blood Tranf: No Family Medical History Patient reports no known family medical history. Physical Exam Vital Signs Vital Signs - First Documented 07/07/20 15:50 Temp 36.2 Pulse 95 Resp 18 B/P (MAP) 153/96 (115) Pulse Ox 97 Capillary Refill : Less Than 3 Seconds Height, Weight, BMI Height: '" Weight: lbs. oz. kg; 58.00 BMI Method: General Appearance: WD/WN, no apparent distress HEENT: PERRL/EOMI, normal ENT inspection Neck: full range of motion, supple Cardiovascular: regular rate, rhythm, no murmur Respiratory: lungs clear, normal breath sounds Gastrointestinal: non tender, soft Back: normal inspection, no vertebral tenderness Hips: bilateral hip non-tender, bilateral hip normal inspection, bilateral hip normal range of motion Legs: bilateral leg non-tender, bilateral leg normal inspection, bilateral leg no evidence of injury Knees: right knee non-tender, right knee normal inspection; bilateral knee normal range of motion; right knee no evidence of injury; left knee soft tissue tenderness, left knee swelling Ankles: bilateral ankle non-tender, bilateral ankle normal inspection, bilateral ankle normal range of motion, bilateral ankle no evidence of injury Feet: bilateral foot non-tender, bilateral foot normal inspection, bilateral foot normal range of motion, bilateral foot no evidence of injury Neurologic/Tendon: normal sensation, normal motor functions, normal tendon functions Neurologic/Psychiatric: no motor/sensory deficits, alert, normal mood/affect, oriented x 3 Skin: normal color, warm/dry Progress/Results/Core Measures Results/Orders Lab Results Laboratory Tests Test 07/07/20 16:05 07/07/20 16:33 Range/Units Urine Color YELLOW Urine Clarity SL CLOUDY Urine pH 6.0 5-9 Urine Specific [place] 1.020 1.016-1.022 Urine Protein NEGATIVE NEGATIVE Urine Glucose (UA) NEGATIVE NEGATIVE Urine Ketones NEGATIVE NEGATIVE Urine Nitrite NEGATIVE NEGATIVE Urine Bilirubin NEGATIVE NEGATIVE Urine Urobilinogen 1.0 < = 1.0 MG/DL Urine Leukocyte Esterase NEGATIVE NEGATIVE Urine RBC (Auto) NEGATIVE NEGATIVE Urine RBC NONE /HPF Urine WBC 0-2 /HPF Urine Squamous Epithelial Cells 10-25 H /HPF Urine Crystals NONE /LPF Urine Bacteria MODERATE H /HPF Urine Casts NONE /LPF Urine Mucus SMALL H /LPF Urine Culture Indicated NO Urine Test NEGATIVE NEGATIVE D-Dimer 0.44 0.00-0.49 UG/ML My Orders Orders - SELMA GARZON APRN Fibrin Degradation Products (07/07/20 16:07) Hcg,Qualitative Urine (07/07/20 16:07) Ua Culture If Indicated (07/07/20 16:07) Knee, Left, 3 Views (07/07/20 16:07) Orphenadrine Inj (Ed Only) (Norflex Inje (07/07/20 17:00) Ketorolac Injection (Toradol Injection) (07/07/20 17:00) Medications Given in ED Current Medications Medications Dose Ordered Sig/Brock Route Start Time Stop Time Status Last Admin Dose Admin Ketorolac Tromethamine 60 mg ONCE ONCE IM 07/07/20 17:00 07/07/20 17:01 DC 07/07/20 17:06 60 MG Orphenadrine Citrate 60 mg ONCE ONCE IM 07/07/20 17:00 07/07/20 17:01 DC 07/07/20 17:06 60 MG Vital Signs/I&O 07/07/20 07/07/20 15:50 17:11 Temp 36.2 Pulse 95 82 Resp 18 18 B/P (MAP) 153/96 (115) 135/88 (115) Pulse Ox 97 97 Blood Pressure Mean: 115 Progress Progress Note : Progress Note Patient examined and in no acute distress. Notes that her back pain has been present since delivery of her child at which time she had an epidural and spinal. States pain in her left knee has exacerbated her low back pain. Denies any numbness, tingling, loss of sensation. No changes in bowel or bladder. Noted to have moderate amount of swelling on anterior knee. Most tenderness is located on both medial lateral aspect of her kneecap. Does have a small amount of tenderness behind the back of her thigh with palpation. Will check urine as she is unsure of status, and obtain images of left knee. D-dimer ordered to r/o DVT. X-ray showed no acute abnormality, test negative, D-dimer within normal limits. Discussed establishing with a primary care provider, a list of local providers given at discharge. States that musculatures have helped her pain in the past. Orders placed for Toradol 60 mg IM and Norflex 60 mg IM with Rx for cyclobenzaprine at discharge. Dilip wrap applied to left knee. Reviewed discharge plan of care and she is agreeable with plan. Diagnostic Imaging Diagonstic Imaging: Xray Plain Films/CT/US/NM/MRI: knee Comments NAME: [facility] REC#: [id number] PT STATUS: REG ER : 1990 PHYSICIAN: SELMA GARZON APRN ADMIT DATE: 07/07/20/ER Draft Date of Exam:07/07/20 KNEE, LEFT, 3 VIEWS INDICATION: Knee swelling. EXAMINATION: Left knee at 4:27 p.m. Three views were obtained. COMPARISON: There is no prior study available for comparison. FINDINGS: There is no fracture, dislocation or acute bony abnormality evident. There is mild deformity of the posterior cortex of the neck of the fibula. This may be a sequela of prior trauma. The knee joint is fairly well maintained. The soft tissues are unremarkable for an acute abnormality or for a radiopaque foreign body. There is no sign of a joint effusion either. IMPRESSION: There is no evidence for an acute bony abnormality. Dictated on workstation # [id number] Dict: 07/07/20 1632 Trans: 07/07/20 1639 [facility] [id number] Interpreted by: JOSIAH CHRISTY MD Electronically signed by: Reviewed: Reviewed by Me Departure Impression Primary Impression: Knee pain Additional Impression: Chronic back pain Disposition: 01 HOME, SELF-CARE Condition: Improved Departure-Patient Inst. Decision time for Depature: 16:59 Referrals: NO,LOCAL PHYSICIAN (PCP/Family) Primary Care Physician Patient Instructions: Knee Pain (DC), LOCAL PHYSICIAN LIST Add. Discharge Instructions: Plan: 1. Discharge home. 2. Establish with primary care provider. 3. May use Dilip wrap for swelling and comfort. 4. Apply ice 20 minutes at a time 4-6x per day. 5. Return to ER for any new, worsening, or concerning symptoms. All discharge instructions reviewed with patient and/or family. Voiced understanding. Scripts Cyclobenzaprine HCl (Cyclobenzaprine HCl) 10 Mg Tablet 10 MG PO Q8H PRN for SPASMS, #15 TAB 0 Refills Prov: SELMA GARZON APRN 07/07/20 SELMA GARZON APRN Jul 07, 2020 16:14
[2020-07-07 16:20] LABS: BILIRUBIN,URINE NEGATIVE (NEGATIVE); COLOR,URINE YELLOW; GLUCOSE, URINE (UA) NEGATIVE (NEGATIVE); KETONES,URINE NEGATIVE (NEGATIVE); LEUKOCYTE ESTERASE ,URINE NEGATIVE (NEGATIVE); NITRITE,URINE NEGATIVE (NEGATIVE); PROTEIN,URINE NEGATIVE (NEGATIVE)
[2020-07-07 16:24] LABS: BACTERIA,URINE MODERATE /HPF; CLARITY,URINE SL CLOUDY; WBC,URINE 0-2 /HPF
--- NOTE | 2020-07-07 16:39 | Diagnostic Imaging Report ---
INDICATION: Knee swelling. EXAMINATION: Left knee at 4:27 p.m. Three views were obtained. COMPARISON: There is no prior study available for comparison. FINDINGS: There is no fracture, dislocation or acute bony abnormality evident. There is mild deformity of the posterior cortex of the neck of the fibula. This may be a sequela of prior trauma. The knee joint is fairly well maintained. The soft tissues are unremarkable for an acute abnormality or for a radiopaque foreign body. There is no sign of a joint effusion either. IMPRESSION: There is no evidence for an acute bony abnormality. Dictated by: Dictated on workstation # [id number]
[2020-07-07] MEDS ORDERED: KETOROLAC 60 MG/2 ML VIAL IM ONE (17:00)
[2020-07-07] MEDS ORDERED: ORPHENADRINE 60 MG/2 ML (NORFLEX) AMP (ED ONLY) IM ONE (17:00)
[2020-07-07] MEDS ORDERED: CYCL10TA9 PO (17:01)
[2020-07-07 17:11] VITALS: BP 135/88
== END 2020-07-07 17:11 | disposition home or self-care (01) ==
LOC: EDUNIT# 15:48 → ER 15:50
DX: M25.562 Pain in left knee (principal); G89.29 Other chronic pain; M54.5 Low back pain
CPT/HCPCS: 36415; 73562; 81000; 84703; 85379

== ENCOUNTER 2020-09-01 23:05 | Emergency (ER) | payer MEDICAID ==
[~2020-09-01] VITALS: Ht 162.5 cm; Wt 150.0 kg
[~2020-09-01 23:05] MED LIST changes: +CYCL10TA9 PO
--- NOTE | 2020-09-01 23:24 | ED Integumentary General ---
General Stated Complaint: POSS SPIDER BITE LEFT KNEE Source: patient Exam Limitations: no limitations History of Present Illness Date Seen by Provider: September 01, 2020 Time Seen by Provider: 23:10 Initial Comments Patient is a 30-year-old female who presents to the emergency department today with a chief complaint of a "bite" possibly from a spider to her right elbow as well as some left knee pain. Patient states that last night she felt something bite or sting her on her right elbow. She states it is continued to swell and she has had increasing discomfort in the right elbow since that time. She denies any distal numbness tingling or weakness to her right arm. Patient also concomitantly complains of some left knee pain and swelling. She states that she has had this off and on for a while. She states it feels swollen. It hurts to put pressure on the left leg. No complaints of recent injuries or illness. All other review of systems reviewed and negative except as stated above. Timing/Duration: yesterday Severity: moderate Possible Cause: insect bite, insect sting Associated Symptoms: denies symptoms Allergies and Home Medications Allergies Coded Allergies: No Known Drug Allergies (Unverified , 11/02/19) Home Medications Cyclobenzaprine HCl 10 Mg Tablet, 10 MG PO Q8H PRN for SPASMS Prescribed by: SELMA GARZON on 07/07/20 1701 Docusate Sodium 100 Mg Capsule, 100 MG PO BID PRN for CONSTIPATION-1ST LINE Prescribed by: HEENA TRAYLOR on 11/28/19 1401 Glyburide 5 Mg Tablet, 5 MG PO BID, (Reported) Hydrocodone/Acetaminophen 1 Each Tablet, 1-2 TAB PO Q6HR PRN for PAIN-MODERATE (5-7) Prescribed by: HEENA TRAYLOR on 11/28/19 1401 Ibuprofen 600 Mg Tablet, 600 MG PO Q6HR Prescribed by: HEENA TRAYLOR on 11/28/19 1401 Patient Home Medication List Home Medication List Reviewed: Yes Review of Systems Review of Systems Constitutional: see HPI EENTM: no symptoms reported Respiratory: no symptoms reported Cardiovascular: no symptoms reported Gastrointestinal: no symptoms reported Genitourinary: no symptoms reported Musculoskeletal: joint pain (Left knee) Skin: lesions (Right elbow) All Other Systems Reviewed Negative Unless Noted: Yes Past Lvlcpow-Scmwcm-Jvhfkt Hx Patient Social History Recent Hopitalizations: No Immunizations Up To Date Tetanus Booster (TDap): Unknown PED Vaccines UTD: Yes Seasonal Allergies Seasonal Allergies: Yes Past Medical History Surgeries: Yes Section Respiratory: No Cardiac: No Neurological: No Genitourinary: No Gastrointestinal: Yes Gastroesophageal Reflux Musculoskeletal: No Endocrine: Yes (GDM) HEENT: No Cancer: No Psychosocial: Yes Anxiety Integumentary: No Blood Disorders: No Adverse Reaction/Blood Tranf: No Family Medical History Patient reports no known family medical history. Physical Exam Vital Signs Capillary Refill : General Appearance: WD/WN, no apparent distress Cardiovascular: regular rate, rhythm Respiratory: no respiratory distress, no accessory muscle use Extremities: normal range of motion (Left knee), other (Mild tenderness to palpation over the left knee/lateral joint line; no effusion is appreciated) Neurologic/Psychiatric: alert, normal mood/affect, oriented x 3 Skin: normal color, warm/dry, other (Right elbow/ proximal dorsal forearm shows a 3 x 3 cm area of subcutaneous swelling. No central fluctuance no concern for abscess) Departure Impression Primary Impression: Insect bite Qualified Codes: S50.861A - Insect bite (nonvenomous) of right forearm, initial encounter; W57.XXXA - Bitten or stung by nonvenomous insect and other nonvenomous arthropods, initial encounter Additional Impression: Left anterior knee pain Disposition: 01 HOME, SELF-CARE Condition: Stable Departure-Patient Inst. Decision time for Depature: 23:23 Referrals: NO,LOCAL PHYSICIAN (PCP/Family) Primary Care Physician Patient Instructions: Knee Pain (DC), Insect Bites and Stings ED Add. Discharge Instructions: Use [id number] Benadryl cream to the area of your right arm where the insect sting/bite is. Apply an ice pack off and on over the course of the next 24 hours this will help reduce swelling. [id number]-[id number] Aleve/naproxen 2 tablets, with food, twice daily as needed for pain and swelling. Follow-up with your primary care provider. Return to the emergency room for any increased pain, redness, swelling, fever or other emergent concerning symptoms PARISH NEWMAN MD September 01, 2020 23:24
[2020-09-01 23:30] VITALS: BP 142/102
[2020-09-01] MEDS ORDERED: NAPROXEN 250 MG (NAPROSYN) TABLET PO ONE (23:30)
== END 2020-09-01 23:30 | disposition home or self-care (01) ==
LOC: EDUNIT# 23:05 → ER 23:08
DX: S50.861A Insect bite (nonvenomous) of right forearm, initial encounter (principal); M25.562 Pain in left knee; W57.XXXA Bitten or stung by nonvenomous insect and other nonvenomous arthropods, initial encounter
CPT/HCPCS: 99283

== ENCOUNTER 2021-03-15 14:54 | Emergency (ER) | payer MEDICAID ==
[~2021-03-15] VITALS: Ht 165 cm; Wt 158.0 kg
[~2021-03-15 14:54] MED LIST changes: -DCS100C PO; +DOCU-239 PO
[2021-03-15] MEDS ORDERED: AMOX500C2 PO (15:14)
[2021-03-15] MEDS ORDERED: ACHD5005 PO (15:14)
--- NOTE | 2021-03-15 15:14 | ED EENT ---
History of Present Illness General Chief Complaint: Dental Problems/Pain Stated Complaint: ABCESS TOOTH Source: patient Exam Limitations: no limitations History of Present Illness Date Seen by Provider: Mar 15, 2021 Time Seen by Provider: 15:10 Initial Comments To ER with reports of an abscessed tooth. She is had dental pain for a very long time and secondary to a tooth with a hole in it. She follows with [facility] but has not been there in a long time she says. No fevers or chills. She does notice a little facial swelling on the left side. She has not taken any medications. His pain seemed to get acutely worse today at about noon Timing/Duration: abrupt Severity: moderate Location: dental Prearrival Treatment: no prearrival treatment Associated Symptoms: facial pain/swelling Allergies and Home Medications Allergies Coded Allergies: No Known Drug Allergies (Unverified , 11/02/19) Patient Home Medication List Home Medication List Reviewed: Yes Cyclobenzaprine HCl (Cyclobenzaprine HCl) 10 Mg Tablet, 10 MG PO Q8H PRN for SPASMS Prescribed by: SELMA GARZON on 07/07/20 1701 Docusate Sodium (Dok) 100 Mg Capsule, 100 MG PO BID PRN for CONSTIPATION-1ST LINE Prescribed by: HEENA TRAYLOR on 11/28/19 1401 Glyburide (Glyburide) 5 Mg Tablet, 5 MG PO BID, (Reported) Entered as Reported by: MICHA METZGER on 11/24/19 1326 Hydrocodone/Acetaminophen (Hydrocodone-Acetamin 5-325 mg) 1 Each Tablet, 1-2 TAB PO Q6HR PRN for PAIN-MODERATE (5-7) Prescribed by: HEENA TRAYLOR on 11/28/19 1401 Ibuprofen (Ibu) 600 Mg Tablet, 600 MG PO Q6HR Prescribed by: HEENA TRAYLOR on 11/28/19 1401 Review of Systems Review of Systems Constitutional: see HPI Eyes: No Symptoms Reported Ears: No Symptoms Reported Nose: no symptoms reported Mouth: no symptoms reported Throat: no symptoms reported Respiratory: no symptoms reported Cardiovascular: no symptoms reported Musculoskeletal: no symptoms reported Skin: no symptoms reported Neurological: No Symptoms Reported Hematologic/Lymphatic: No Symptoms Reported Immunological/Allergic: no symptoms reported Past Kkwaony-Dxzcbi-Nvtkyo Hx Immunizations Up To Date Tetanus Booster (TDap): Unknown PED Vaccines UTD: Yes Seasonal Allergies Seasonal Allergies: Yes Past Medical History Surgeries: Yes Section Respiratory: No Cardiac: No Neurological: No Genitourinary: No Gastrointestinal: Yes Gastroesophageal Reflux Musculoskeletal: No Endocrine: Yes (GDM) HEENT: No Cancer: No Psychosocial: Yes Anxiety Integumentary: No Blood Disorders: No Adverse Reaction/Blood Tranf: No Family Medical History Patient reports no known family medical history. Physical Exam Height, Weight, BMI Height: '" Weight: lbs. oz. kg; 56.00 BMI Method: General Appearance: WD/WN, no apparent distress Eyes: bilateral eye normal inspection, bilateral eye PERRL, bilateral eye EOMI Ears: bilateral ear auricle normal, bilateral ear canal normal, bilateral ear TM normal Mouth/Throat: maxillary swelling (Questionable left-sided maxillary swelling. Multiple teeth are carious. No palpable abscess along the gingivo buccal fold.) Neck: non-tender, full range of motion Cardiovascular: regular rate, rhythm, no murmur Respiratory: no respiratory distress, no accessory muscle use Gastrointestinal: normal bowel sounds, non tender, soft Neurologic/Psychiatric: alert, normal mood/affect, oriented x 3 Skin: normal color, warm/dry Progress/Results/Core Measures Results/Orders My Orders Orders - RADHA DAVE APRN Ketorolac Injection (Toradol Injection) (03/15/21 15:15) Departure Impression Primary Impression: Dental caries Disposition: HOME, SELF-CARE Condition: Stable Departure-Patient Inst. Decision time for Depature: 15:13 Referrals: NO,LOCAL PHYSICIAN (PCP) Primary Care Physician Patient Instructions: Dental Pain (DC) Add. Discharge Instructions: [facility]. [facility] to make an appointment to be seen. The antibiotics and pain medication is only a temporary fix and the pain will return. All discharge instructions reviewed with patient and/or family. Voiced understanding. Scripts Amoxicillin (Amoxicillin) 500 Mg Capsule 500 MG PO TID, #21 CAP 0 Refills Prov: RADHA DAVE APRN 03/15/21 Hydrocodone/Acetaminophen (Hydrocodone-Acetamin 5-325 mg) 1 Each Tablet 1 TAB PO Q4H PRN for PAIN-MODERATE (5-7), #10 TAB Prov: RADHA DAVE APRN 03/15/21 RADHA DAVE APRN Mar 15, 2021 15:14
[2021-03-15] MEDS ORDERED: KETOROLAC 60 MG/2 ML VIAL IM ONE (15:15)
[2021-03-15 15:21] VITALS: BP 162/84
== END 2021-03-15 15:21 | disposition home or self-care (01) ==
LOC: EDUNIT# 14:54 → ER 14:57
DX: K02.9 Dental caries, unspecified (principal)
CPT/HCPCS: 99284

== ENCOUNTER 2022-03-27 07:21 | Emergency (ER) | payer MEDICAID ==
[~2022-03-27] VITALS: Ht 162 cm; Wt 156.0 kg
[~2022-03-27 07:21] MED LIST changes: +AMOX500C2 PO; +CYCL10TA25 PO; -CYCL10TA9 PO
[2022-03-27 07:25] VITALS: BP 179/98
[2022-03-27] MEDS ORDERED: AMOXICILLIN 500 MG (POLYMOX) CAP PO STA (08:30)
[2022-03-27] MEDS ORDERED: KETOROLAC 30 MG/ML VIAL IM ONE (08:30)
--- NOTE | 2022-03-27 08:34 | ED EENT ---
History of Present Illness General Chief Complaint: Dental Problems/Pain Stated Complaint: DENTAL PAIN Nursing Triage Note: ARRIVED VIA AMB TO [facility] WITH COMPLAINTS OF RIGHT UPPER DENTAL PAIN STARTING YESTERDAY. PT STATES SHE HAS BEEN TAKING TYLENOL WHICH HAS NOT HELPED. Source: patient Exam Limitations: no limitations History of Present Illness Date Seen by Provider: Mar 27, 2022 Time Seen by Provider: 08:19 Allergies and Home Medications Allergies Coded Allergies: No Known Drug Allergies (Unverified , 11/02/19) Patient Home Medication List Home Medication List Reviewed: Yes Discontinued Medications Amoxicillin (Amoxicillin) 500 Mg Capsule, 500 MG PO TID Discontinued Reason: No Longer Taking Prescribed by: RADHA DAVE on 03/15/21 1514 Last Action: Discontinued Cyclobenzaprine HCl (Cyclobenzaprine HCl) 10 Mg Tablet, 10 MG PO Q8H PRN for SPASMS Discontinued Reason: No Longer Taking Prescribed by: SELMA GARZON on 07/07/20 1701 Last Action: Discontinued Docusate Sodium (Dok) 100 Mg Capsule, 100 MG PO BID PRN for CONSTIPATION-1ST LINE Discontinued Reason: No Longer Taking Prescribed by: HEENA TRAYLOR on 11/28/19 1401 Last Action: Discontinued Glyburide (Glyburide) 5 Mg Tablet, 5 MG PO BID, (Reported) Discontinued Reason: No Longer Taking Entered as Reported by: MICHA METZGER on 11/24/19 1326 Last Action: Discontinued Hydrocodone/Acetaminophen (Hydrocodone-Acetamin 5-325 mg) 1 Each Tablet, 1-2 TAB PO Q6HR PRN for PAIN-MODERATE (5-7) Discontinued Reason: No Longer Taking Prescribed by: HEENA TRAYLOR on 11/28/19 1401 Last Action: Discontinued Hydrocodone/Acetaminophen (Hydrocodone-Acetamin 5-325 mg) 1 Each Tablet, 1 TAB PO Q4H PRN for PAIN-MODERATE (5-7) Discontinued Reason: No Longer Taking Prescribed by: RADHA DAVE on 03/15/21 1514 Last Action: Discontinued Ibuprofen (Ibu) 600 Mg Tablet, 600 MG PO Q6HR Discontinued Reason: No Longer Taking Prescribed by: HEENA TRAYLOR on 11/28/19 1401 Last Action: Discontinued Past Fiikeuv-Gyoivg-Xbqlof Hx Patient Social History Tobacco Use?: No Substance use?: No Alcohol Use?: No Immunizations Up To Date Tetanus Booster (TDap): Unknown PED Vaccines UTD: Yes Seasonal Allergies Seasonal Allergies: Yes Past Medical History Surgeries: Yes Section Respiratory: No Cardiac: No Neurological: No Genitourinary: No Gastrointestinal: Yes Gastroesophageal Reflux Musculoskeletal: No Endocrine: Yes (GDM) HEENT: No Cancer: No Psychosocial: Yes Anxiety Integumentary: No Blood Disorders: No Adverse Reaction/Blood Tranf: No Family Medical History Patient reports no known family medical history. Physical Exam Vital Signs Vital Signs - First Documented 03/27/22 07:25 Temp 36.3 Pulse 82 Resp 16 B/P (MAP) 179/98 (125) Pulse Ox 98 O2 Delivery Room Air Height, Weight, BMI Height: '" Weight: lbs. oz. kg; 59.00 BMI Method: Progress/Results/Core Measures Results/Orders My Orders Orders - JORDIN MARLEY MD Ketorolac Injection (Toradol Injection) (03/27/22 08:30) Amoxicillin Capsule (Polymox Capsule) (03/27/22 08:30) Medications Given in ED Current Medications Medications Dose Ordered Sig/Brock Route Start Time Stop Time Status Last Admin Dose Admin Ketorolac Tromethamine 30 mg ONCE ONCE IM 03/27/22 08:30 03/27/22 08:31 DC 03/27/22 08:41 30 MG Vital Signs/I&O 03/27/22 07:25 Temp 36.3 Pulse 82 Resp 16 B/P (MAP) 179/98 (125) Pulse Ox 98 O2 Delivery Room Air Blood Pressure Mean: 125 Departure Impression Primary Impression: Pain, dental Disposition: 01 HOME, SELF-CARE Condition: Improved Departure-Patient Inst. Decision time for Depature: 08:32 Referrals: [facility] (PCP/Family) Primary Care Physician Patient Instructions: Dental Pain Add. Discharge Instructions: Complete your antibiotics as prescribed. Follow-up with a dentist as soon as possible. You may take Tylenol (acetaminophen) no more than 1000 mg every 6 hours as needed. You may also take ibuprofen no more than 600 mg every 6 hours as needed. Never exceed these recommended doses as you may cause significant harm with larger doses and will not receive any additional pain relief benefit from higher doses. Return to care if you have worsening symptoms or develop new symptoms such as fever. All discharge instructions reviewed with patient and/or family. Voiced understanding. Scripts Amoxicillin (Amoxicillin) 500 Mg Capsule 1000 MG PO BID, #40 CAP 0 Refills Prov: JORDIN MARLEY MD 03/27/22 JORDIN MARLEY MD Mar 27, 2022 08:34
[2022-03-27] MEDS ORDERED: AMOX500C2 PO (12:12)
== END 2022-03-27 08:43 | disposition home or self-care (01) ==
LOC: EDUNIT# 07:21 → ER 07:23
DX: K08.89 Other specified disorders of teeth and supporting structures (principal); Z28.310 Unvaccinated for COVID-19
CPT/HCPCS: 99283

== ENCOUNTER 2022-09-18 02:30 | Emergency (ER) | payer SELFPAY ==
[~2022-09-18] VITALS: Ht 162.5 cm; Wt 154.2 kg
[2022-09-18] MEDS ORDERED: AMOXICILLIN 500 MG (POLYMOX) CAP PO STA (02:49)
[2022-09-18] MEDS ORDERED: KETOROLAC 60 MG/2 ML VIAL IM STA (02:49)
--- NOTE | 2022-09-18 02:56 | ED EENT ---
History of Present Illness General Chief Complaint: Skin/Wound Problems Stated Complaint: ABSCESS ON RT SIDE OF FACE,SWELLING Nursing Triage Note: PT AMB TO [facility] WITH C/O OF ABCESS ON RIGHT UPPER TOOTH THAT STARTED YESTERDAY MORNING. PT STATES THAT PAIN IS GOING INTO EYE. Source: patient Exam Limitations: no limitations History of Present Illness Date Seen by Provider: September 18, 2022 Time Seen by Provider: 02:40 Initial Comments Here with complaint of right upper posterior tooth pain where her wisdom tooth is cracked off and she sometimes gets infections. She is trying to get this pulled but has been unsuccessful so far. She has tried several doses of acetaminophen tonight and that has not helped the pain. Denies breathing or swallowing problems. Has had problems with this tooth before. She states usually the shot of Toradol and initiation of antibiotics will make the pain better. Also noted to have hypertension. She states that she has blood pressure medicines at home but has not been taking them but will restart them. Timing/Duration: gradual, last week Severity: moderate Location: mouth, dental Prearrival Treatment: over the counter meds Associated Symptoms: No cough, No drooling, No facial pain/swelling, No fever; tooth pain Allergies and Home Medications Allergies Coded Allergies: No Known Drug Allergies (Unverified , 11/02/19) Patient Home Medication List Home Medication List Reviewed: Yes Amoxicillin (Amoxicillin) 500 Mg Capsule, 1,000 MG PO BID Prescribed by: JORDIN VEGA on 03/27/22 1212 Review of Systems Review of Systems Constitutional: see HPI; No chills, No fever Eyes: No Symptoms Reported Ears: No Symptoms Reported Nose: no symptoms reported Mouth: see HPI, pain, swelling Throat: denies pain, denies painful swallowing Respiratory: No cough, No short of breath Gastrointestinal: No nausea, No vomiting Past Isfncxk-Wucdtq-Zzrjlt Hx Patient Social History Tobacco Use?: No Substance use?: No Alcohol Use?: No Immunizations Up To Date Tetanus Booster (TDap): Unknown PED Vaccines UTD: Yes Seasonal Allergies Seasonal Allergies: Yes Past Medical History Surgeries: Yes Section Respiratory: No Cardiac: Yes Hypertension Neurological: No Genitourinary: No Gastrointestinal: Yes Gastroesophageal Reflux Musculoskeletal: No Endocrine: Yes (GDM) HEENT: No Cancer: No Psychosocial: Yes Anxiety Integumentary: No Blood Disorders: No Adverse Reaction/Blood Tranf: No Family Medical History Reviewed Nursing Family Hx Patient reports no known family medical history. Physical Exam Vital Signs Vital Signs - First Documented 09/18/22 02:38 Temp 36.8 Pulse 90 B/P (MAP) 191/117 (141) Pulse Ox 100 O2 Delivery Room Air Height, Weight, BMI Height: '" Weight: lbs. oz. kg; 58.00 BMI Method: General Appearance: WD/WN, no apparent distress Nose: normal inspection; No active bleeding Mouth/Throat: maxillary swelling (Right upper posterior tooth area of wisdom tooth); No pharynx tenderness Neck: full range of motion, supple; No lymphadenopathy (R), No lymphadenopathy (L) Cardiovascular: regular rate, rhythm, no murmur Respiratory: lungs clear, normal breath sounds Neurologic/Psychiatric: alert, oriented x 3 Progress/Results/Core Measures Results/Orders My Orders Orders - SHU DUBOSE MD Toradol 60 Mg Im (09/18/22 02:49) Amoxicillin 1000mg Po (09/18/22 02:49) Vital Signs/I&O 09/18/22 02:38 Temp 36.8 Pulse 90 B/P (MAP) 191/117 (141) Pulse Ox 100 O2 Delivery Room Air Blood Pressure Mean: 141 Progress Progress Note : Progress Note Seen and evaluated. Patient has old fractures/decayed tooth in the area of the wisdom tooth on the right with some swelling without obvious abscess. We will go ahead and initiate oral antibiotics with amoxicillin 1000 mg p.o. and give Toradol 60 mg IM. I will send prescription for antibiotics. I did discuss the importance of taking OTC medications as directed and we did discuss Tylenol and ibuprofen dosing. We also discussed salt water flushes. Discharged home with return precautions. Patient verbalized understanding instructions and agreement with plan. Departure Impression Primary Impression: Pain, dental Disposition: 01 HOME, SELF-CARE Condition: Stable Departure-Patient Inst. Decision time for Depature: 02:55 Referrals: [facility] (PCP/Family) Primary Care Physician Patient Instructions: Dental Pain (DC), Tooth Abscess (DC) Add. Discharge Instructions: All discharge instructions reviewed with patient and/or family. Voiced understanding. You may take ibuprofen 600 mg every 8 hours as needed for pain. You may also take Tylenol/acetaminophen 1000 mg every 8 hours as needed for pain. You should rinse your mouth with salt water using 1 teaspoon of salt and 1 glass of warm water and swishing and spitting. Do not swallow salt water. You may use topical Anbesol gel or similar to area of concern to reduce tooth pain. It is very important that you follow-up with a dentist [facility]. Return for worse pain, swelling, breathing or swallowing problems, fever, vomiting or other concerns as needed. Scripts Amoxicillin (Amoxicillin) 500 Mg Capsule 500 MG PO TID, #30 CAP 0 Refills Prov: SHU DUBOSE MD 09/18/22 SHU DUBOSE MD September 18, 2022 02:56
[2022-09-18] MEDS ORDERED: AMOX500C2 PO (02:57)
[2022-09-18 02:59] VITALS: BP 181/119
== END 2022-09-18 03:02 | disposition home or self-care (01) ==
LOC: EDUNIT# 02:30 → ER 02:34
DX: K08.89 Other specified disorders of teeth and supporting structures (principal)
CPT/HCPCS: 99284